=== PATIENT | male | born 1955 | race Caucasian/White ===

== ENCOUNTER → 2016-11-30 | Outpatient (CLI) | payer OTHER ==
[~2016-11-30] MED LIST: IOPAMIDOL (ISOVUE 370) 100 ML BTL IV ONE
== END ==
LOC: FIMAGING 12:56
PROVIDERS: ATTEND Internal Medicine Interventional Cardiology
DX: I77.810 Thoracic aortic ectasia (principal); I25.10 Atherosclerotic heart disease of native coronary artery without angina pectoris
CPT/HCPCS: Q9967

== ENCOUNTER 2017-06-13 09:44 | Emergency (ER) | payer OTHER ==
[2017-06-13 09:50] VITALS: RESP 18
[2017-06-13] MEDS ORDERED: valACYclovir 500 MG TAB PO ONE (10:05)
--- NOTE | 2017-06-13 10:09 | EDPHY ---
H & P Stated Complaint: poss shingles--had shingles vac 8 days ago-L side eruptions Time Seen by Provider: 06/13/17 09:52 HPI/ROS: Chief Complaint: Left scalp pain HPI: 61-year-old male presenting with painful rash in the left side of the scalp which started 2 days ago. Patient states he had the new shingles vaccine 8 days ago. Noticed a small lesion on the left side upper scalp 2 days ago. He has had spread other lesion with some spots on the left side of his forehead above his eye. No vision changes. Rash is very painful. It does not cross the right side. No fevers or chills. No nausea or vomiting. ROS: 10 point Review of Systems is negative except as noted in the HPI. Social History: No smoking, no alcohol, no recreational drug use Family History: non-contributory Physical Exam: Gen: Awake, Alert, No Distress HEENT: Patient has a vesicular rash which is patch in his left scalp on a a mildly erythematous base. There are satellite type lesions with similar appearing vesicles. This is consistent with shingles Nose: no rhinorrhea Eyes: PERRLA, EOMI Mouth: Moist mucosa Neck: Supple, no JVD Back: no CVA tenderness, no midline tenderness Ext: no edema, non-tender Skin: no rash Neuro: CN II-XII intact, Sensation grossly intact, Strength 5/5 in bilateral upper and lower extremities - Personal History Tetanus Vaccine Date: < 10 years - Medical/Surgical History Hx Asthma: No Hx Chronic Respiratory Disease: No Hx Diabetes: No Hx Cardiac Disease: No Hx Renal Disease: No Hx Cirrhosis: No Hx Alcoholism: No Hx HIV/AIDS: No Hx Splenectomy or Spleen Trauma: No Other PMH: prostate cancer with a few bladder neck revisions (last 07/18/15), appy06/30/2015, right shoulder surgery x 2, left shoulder surgery x 1 - Social History Smoking Status: Never smoked Constitutional: Initial Vital Signs Temperature (C) 36.4 C 06/13/17 09:48 Heart Rate 67 06/13/17 09:48 Respiratory Rate 18 06/13/17 09:48 Blood Pressure 124/81 H 06/13/17 09:48 O2 Sat (%) 98 06/13/17 09:48 O2 Delivery Mode Room Air Allergies/Adverse Reactions: acetaminophen [From Tylenol Severe Allergy] Allergy (Severe, Verified 07/05/15 09:21) HICCOUGHS Penicillins Allergy (Mild, Verified 10/07/14 09:46) Rash Sulfa (Sulfonamide Antibiotics) Allergy (Mild, Verified 10/07/14 09:46) Rash MOLDS Allergy (Mild, Uncoded 10/07/14 09:46) Rash Home Medications: Medication Instructions Recorded Tadalafil [Cialis] 5 mg PO DAILY PRN 08/03/13 Zolpidem Tartrate [Zolpidem 12.5 mg PO HS 06/30/15 Tartrate ER] Multivitamins [Multivitamin (*)] 1 each PO DAILY #0 tab 07/05/15 [place]-3 Fatty Acids [Fish Oil 1000 1,000 mg PO DAILY #0 cap 07/05/15 mg (*)] chlorproMAZINE HCL [Thorazine] 25 mg PO TID PRN #10 tab 07/08/15 Aleve 220 MG (OTC) 220 mg PO DAILY PRN 08/29/15 Aspirin EC 81 mg (OTC) 81 mg PO DAILY 08/29/15 Atorvastatin Calcium 40 mg PO DAILY 08/29/15 Vitamin D3 2000 units tab (OTC) 2,000 units PO DAILY 08/29/15 HYDROcodone BITARTRATE [Zohydro ER] 10 mg PO BID #10 cap.er.12h 06/13/17 Oxycodone HCl 5 mg PO TID PRN #10 capsule 06/13/17 Valacyclovir HCl [Valtrex] 1,000 mg PO TID #21 tab 06/13/17 Medical Decision Making ED Course/Re-evaluation: Unfortunate 61-year-old male presenting with shingles just 8 days after having the shingles vaccine. Will start him on Valtrex. He already has an appointment with Dermatology on Wednesday. Will send him for ophthalmology follow -up tomorrow as he is complaining of some eye pain. - Data Points Medications Given: Discontinued Medications Valacyclovir HCl (Valtrex) 1,000 mg PO EDNOW ONE Stop: 06/13/17 10:06 Last Admin: 06/13/17 10:20 Dose: 1,000 mg Departure - Departure Disposition: Home, Routine, Self-Care Clinical Impression: Shingles Condition: Good Instructions: Shingles (ED) Additional Instructions: Follow up with Ophthalmology tomorrow. Follow up with your communication technician as scheduled on Wednesday. Return to the emergency department for increasing pain, worsening eye pain, vision changes, or any other concerns. Referrals: David Ospina MD [Primary Care Provider] - As per Instructions Jame Soliz MD [Medical Doctor] - As per Instructions Prescriptions: HYDROcodone BITARTRATE [Zohydro ER] 10 mg PO BID #10 cap.er.12h Oxycodone HCl 5 mg PO TID PRN #10 capsule PRN Reason: Pain, Severe Valacyclovir HCl [Valtrex] 1,000 mg PO TID #21 tab
[2017-06-13] MEDS ORDERED: valACYclovir 500 MG TAB ONE (10:18)
[2017-06-13 10:26] VITALS: BP 140/81; PULSE 58; TEMP 98.1; O2SAT 93
== END 2017-06-13 10:26 | disposition home or self-care (01) ==
DX: B02.9 Zoster without complications (principal); Z79.82 Long term (current) use of aspirin; Z85.46 Personal history of malignant neoplasm of prostate

== ENCOUNTER 2018-02-20 15:49 | Emergency (ER) | payer OTHER ==
--- NOTE | 2018-02-20 16:09 | EDPHY ---
HPI/HX/ROS/PE/MDM Narrative: CHIEF COMPLAINT: Pain after inguinal hernia repair HISTORY OF PRESENT ILLNESS: The patient is a 62 y/o male with a history of a bilateral inguinal hernia with surgical repair (02/16/18) complaining of pain at the inguinal hernia surgical site. He had surgical repair of bilateral inguinal hernias at [facility] with Dr. Phipps on 02/16/18. He was hospitalized overnight and most of the next day for pain control. Since the surgery, when at rest his pain is at a 2 but increases to an 8 when twisting or otherwise engaging his abdominal muscles. The pain is localized to two focal regions on the right side of his abdomen. He is experiencing difficulty caring for himself due to pain. He denies fever, nausea, vomiting, pain in his back, difficulty urinating, or any other associated symptoms. No fever, chills, chest pain, shortness of breath, palpitations, vomiting, diarrhea, urinary complaints, headache, lightheadedness. REVIEW OF SYSTEMS: A comprehensive 10 system review of systems is otherwise negative aside from elements mentioned in the history of present illness and medical decision making PAST MEDICAL HISTORY: Bilateral inguinal hernia with surgical repair SOCIAL HISTORY: Lives in [place], employed by [employer], nonsmoker VITAL SIGNS: Reviewed by me, afebrile. GENERAL: Well-developed, well-nourished, resting in no respiratory distress. HEENT: Normal exam.. LUNGS: Clear to auscultation bilaterally, no wheezes, rhonchi or rales. CARDIAC: Regular rate and rhythm, no rubs, murmurs or gallops. ABDOMEN: Soft, nondistended, bowel sounds normal. Abdominal surgical scope incisions are healing appropriately with normal appearance for this stage of healing. Mild tenderness in a very focal area the right lower quadrant. This area of pain is worse with twisting or movement of the abdominal wall. BACK: No CVA tenderness. UROGENITAL: Scrotum is swollen and ecchymotic, worse on right. Mild crepitus. No testicular tenderness. EXTREMITIES: No trauma. No edema. Range of motion is normal throughout. NEURO: Alert and oriented, grossly nonfocal. SKIN: Warm and dry, no rash. PSYCHIATRIC: Normal mentation, no agitation. ED Course: The patient presents with pain, worse with twisting, after bilateral inguinal hernia repair. The pain is localized to two focal regions in the right abdomen. Exam shows excision sites healing normally with no signs of infection, ecchymosis and swelling of the scrotum. I called Dr. Phipps, the surgeon who performed the repair, and he will evaluate the patient in the ED. Patient seen in the emergency department by Dr. Lawson. Please see his consultation note. Patient was discharged with instructions to use Aleve and was given a prescription for gabapentin. MDM: Differential diagnoses for the patient's symptom complex was considered including but not limited to postoperative pain, hematoma, scrotal hematoma, testicular hematoma, cellulitis, abscess. General Time Seen by Provider: 02/20/18 16:07 Initial Vital Signs: Initial Vital Signs Temperature (C) 36.8 C 02/20/18 15:56 Heart Rate 108 H 02/20/18 15:56 Respiratory Rate 16 02/20/18 15:56 Blood Pressure 135/94 H 02/20/18 15:56 O2 Sat (%) 94 02/20/18 15:56 O2 Delivery Mode Room Air Allergies/Adverse Reactions: acetaminophen [From Tylenol Severe Allergy] Allergy (Severe, Verified 02/20/18 15:54) HICCOUGHS Penicillins Allergy (Mild, Verified 02/20/18 15:54) Rash Sulfa (Sulfonamide Antibiotics) Allergy (Mild, Verified 02/20/18 15:54) Rash MOLDS Allergy (Mild, Uncoded 02/20/18 15:54) Rash Home Medications: Medication Instructions Recorded Tadalafil [Cialis] 5 mg PO DAILY PRN 08/03/13 Zolpidem Tartrate [Zolpidem 12.5 mg PO HS 06/30/15 Tartrate ER] Multivitamins [Multivitamin (*)] 1 each PO DAILY #0 tab 07/05/15 chlorproMAZINE HCL [Thorazine] 25 mg PO TID PRN #10 tab 07/08/15 Atorvastatin Calcium 40 mg PO DAILY 08/29/15 Oxycodone HCl 5 mg PO TID PRN #10 capsule 06/13/17 Departure - Departure Disposition: Home, Routine, Self-Care Clinical Impression: Acute postoperative pain Condition: Good Instructions: Pain Management (ED) Additional Instructions: 1. Please use Aleve 1 tablet 2 times a day on a regular basis for the next several days to provide some anti inflammation. 2. In addition to the Aleve, continue taking her oxycodone if needed for more severe pain. 3. Take gabapentin as directed. 4. Ice will be helpful for the next 24-48 hours. Use ice on the areas of swelling and tenderness for 20-30 minutes every 2-3 hours. 5. Return to the emergency department or follow up with Dr. Lawson if you have worsening pain despite the above measures, if you developed fever, vomiting , chills, or other concerns. Referrals: Dolly Partida MD [Primary Care Provider] - As per Instructions Sacha Lawson MD [Medical Doctor] - As per Instructions Report Scribed for: Sandra Jordan Report Scribed by: Nathalia Mixon Date of Report: 02/20/18 Time of Report: 16:32 Physician Review and Approval Statement: Portions of this note were transcribed by a medical records director. I personally performed a history, physical exam, medical decision making, and confirmed accuracy of information the transcribed note.
[2018-02-20 17:01] VITALS: BP 121/85
--- NOTE | 2018-02-20 18:12 | GCON ---
DATE OF CONSULTATION: 02/20/2018 Meeting the patient in the emergency department. He is well known to me from previous bilateral robo tic inguinal hernia repairs approximately a week ago. The patient has had more than the expected tyler unt of discomfort since that surgery, and has been on Oxy IR for pain management. He called earlier in the day concerned that his pain was intolerable. PHYSICAL EXAM: The 3 trocar sites from the robotic inguinal hernia repair are healing well. There i s no surrounding ecchymosis. The inguinal canal is normal, without any hernia recurrence. The right testis is discretely palpable. There is modest right scrotal swelling, but no real mass and is cert ainly not grotesque. The patient's point of maximal tenderness is actually fairly high above the emelina in area, midway between the pubic tubercle and the right upper quadrant trocar site. The patient has exquisite pain even when lightly stroking the skin in this area. ASSESSMENT: No sign of catastrophic intra-abdominal process explaining his pain. No infection, no h ematoma. This could likely be some type of neurapraxia, possibly from the trocar inserted above that area, as the nerves run obliquely in the abdominal wall and this is the only thing that really fits his pattern of discomfort. I suggested that we start some Neurontin. I have given him a prescriptio n for 300 three times a day, but suggested he start slower than that maximal dose to prevent undue fa tigue, and I will see him in the office later in the week. /[id number]/MODL
== END 2018-02-20 17:07 | disposition home or self-care (01) ==
DX: G89.18 Other acute postprocedural pain (principal); N50.89 Other specified disorders of the male genital organs